=== PATIENT | male | born 2005 | race Caucasian/White ===

== ENCOUNTER 2024-08-21 20:55 | Emergency (ER) | payer OTHER, SELFPAY ==
[2024-08-21 21:02] VITALS: BP 103/55; BMI 20.7
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
[2024-08-21 23:13] VITALS: BP 102/60
== END 2024-08-21 23:21 | disposition home or self-care (01) ==
LOC: EMR 20:55
PROVIDERS: EMERGENCY PHYSICIAN Emergency Medicine
DX: N43.3 Hydrocele, unspecified (principal)
CPT/HCPCS: 99284; 76870; 93976